=== PATIENT | female | born 1980 | race Caucasian/White ===

== ENCOUNTER 2018-11-16 19:05 | Emergency (ER) | payer OTHER, SELFPAY ==
[2018-11-16] MEDS ORDERED: Metoclopramide HCl 10 MG/2 ML VIAL ONE (19:54)
[2018-11-16] MEDS ORDERED: diphenhydrAMINE 50 MG/ML VIAL ONE (19:54)
[2018-11-16] MEDS ORDERED: Metoclopramide HCl 10 MG/2 ML VIAL IVP SCH (20:15)
[2018-11-16] MEDS ORDERED: Sodium Chloride 0.9% 1,000 ML IV SCH (20:15)
[2018-11-16] MEDS ORDERED: diphenhydrAMINE 50 MG/ML VIAL IVP SCH (20:15)
[2018-11-16] MEDS ORDERED: Ketorolac Tromethamine 30 MG/ML VIAL ONE (21:20)
== END 2018-11-16 21:30 | disposition home or self-care (01) ==
LOC: ERS 19:05
DX: R51 Headache (principal); F17.210 Nicotine dependence, cigarettes, uncomplicated
CPT/HCPCS: 96361; 96374; 96375; J1200; J1885; J2765